=== PATIENT | female | born 1995 | race Two or more races ===

== ENCOUNTER 2017-01-16 21:32 | Emergency (ER) | payer OTHER ==
[~2017-01-16] VITALS: Ht 152.4 cm; Wt 81.6 kg
[2017-01-16 21:57] VITALS: BP 129/86
--- NOTE | 2017-01-16 22:05 | Emergency Room Report ---
History of Present Illness General Chief Complaint: Abdominal Pain Source: Patient Present Illness HPI Is a 21-year-old female with no past history. She presents acutely abdominal pain. She has mild nonspecific pain starting this afternoon. It never went away. 2 hours ago pain became severe. Localized mostly epigastric area and radiate diffusely. No nausea no vomiting. No diarrhea. Pain is 9/10. No urinary complaint. Denies any other complaint Allergies: Coded Allergies: SESAME SEED (Verified Allergy, Unknown, 01/16/17) SHRIMP (Verified Allergy, Unknown, 01/16/17) Patient History Past Medical History: none, see triage record, old chart reviewed Past Surgical History: none Pertinent Family History: none Social History: Denies: smoking Last Menstrual Period: 12/31/16 Now: No Immunizations: other Reviewed Nursing Documentation: PMH: Agreed, PSxH: Agreed Nursing Documentation-PMH Past Medical History: No Stated History Review of Systems Eye: Denies: blurred vision, eye pain ENT: Denies: ear pain, nose congestion, throat swelling Respiratory: Denies: cough, shortness of breath Cardiovascular: Denies: chest pain, palpitations Gastrointestinal: Reports: abdominal pain, Denies: diarrhea, nausea, vomiting Musculoskeletal: Denies: back pain, joint pain Skin: Denies: rash Neurological: Denies: headache, numbness Endocrine: Denies: increased thirst, increased urine Hematologic/Lymphatic: Denies: easy bruising All Other Systems: negative except mentioned in HPI Physical Exam Vital Signs Date Time Temp Pulse Resp B/P Pulse Ox O2 Delivery O2 Flow Rate FiO2 01/16/17 21:46 97.7 71 15 129/86 97 Room Air itals normal Sp02 EP Interpretation: reviewed, normal General Appearance: well appearing, no apparent distress, alert Head: normocephalic, atraumatic Eyes: bilateral eye EOMI, bilateral eye PERRL ENT: hearing grossly normal, normal pharynx Neck: full range of motion, supple, no meningismus Respiratory: chest non-tender, lungs clear, normal breath sounds Cardiovascular #1: regular rate, rhythm, no murmur Gastrointestinal: normal bowel sounds, no mass, no organomegaly, no bruit, non- distended, tenderness - diffuse Musculoskeletal: back normal, gait/station normal, normal range of motion Psychiatric: mood/affect normal Skin: warm/dry Medical Decision Making Diagnostic Impression: Primary Impression: Abdominal pain Qualified Codes: R10.13 - Epigastric pain ER Course Patient present with abdominal pain. Most likely gastritis peptic ulcer disease. No evidence of acute abdomen. CT scan otherwise unremarkable. We'll discharge home. Lab Results Impression labs with mild leukocytosis CT/MRI/US Diagnostic Results CT/MRI/US Diagnostic Results : Imaging Test Ordered: CT abdomen and pelvis Impression read by radiologist. Mild stranding near gastroduodenal region concerning for PUD or gastritis/ duodenitis. Cannot exclude pancreatitis due to nearby stranding, please correlate clinically. No free air, pseudocyst, or abscess. No SBO, diverticulitis, or appendicitis. Fatty liver. No radiopaque cholelithiasis. No hydronephrosis. Last Vital Signs Date Time Temp Pulse Resp B/P Pulse Ox O2 Delivery O2 Flow Rate FiO2 01/16/17 21:57 97.7 15 129/86 97 Room Air 01/16/17 21:46 71 Status: improved Disposition: HOME, SELF-CARE Condition: Stable Scripts Omeprazole Magnesium (PRILOSEC OTC) 20 Mg Tablet. 20 MG ORAL DAILY, #30 TAB Prov: SAM CORNEJO M.D. 01/17/17 Additional Instructions: Followup with your DrAlex in 2-3 days. Return if symptom worsen. SAM CORNEJO M.D. Jan 16, 2017 22:05
[2017-01-16] MEDS ORDERED: Morphine Sulfate 4mg/ml Inj IVP ONE (22:15)
[2017-01-16 22:27] LABS: APPEARANCE,URINE CLEAR; KETONES,URINE NEGATIVE (NEGATIVE); LEUKOCYTE ESTERASE ,URINE 3+ (NEGATIVE); NITRITE,URINE NEGATIVE (NEGATIVE); PH,URINE 6 (4.5-8.0); PROTEIN,URINE NEGATIVE (NEGATIVE); UROBILINOGEN,URINE NORMAL MG/DL (0.0-1.0)
[2017-01-16 22:34] LABS: BACTERIA,URINE FEW /HPF; BASOPHILS % (AUTO) 0.9 % (0.0-2.0); EOSINOPHILS % (AUTO) 3.7 % (0.0-3.0); LYMPHOCYTES % (AUTO) 25.7 % (20.0-45.0); MEAN CORPUSCULAR HEMOGLOBIN 29.5 PG (27.0-31.0); MEAN CORPUSCULAR VOLUME 84 FL (80-99); MONOCYTES % (AUTO) 7.8 % (1.0-10.0); PLATELET COUNT 364 K/UL (150-450); RBC,URINE 0-2 /HPF (0 - 2); RED BLOOD COUNT 5.17 M/UL (4.20-5.40); RED CELL DISTRIBUTION WIDTH 11.3 % (11.6-14.8); SQUAMOUS EPITHELIAL CELL,UR FEW /LPF (NONE/OCC); WHITE BLOOD COUNT 15.2 K/UL (4.8-10.8)
[2017-01-16 22:45] LABS: ALANINE AMINOTRANSFERASE 48 U/L (3-33); ALBUMIN/GLOBULIN RATIO 1.6 (1.0-2.7); ANION GAP 14 (5-15); ASPARTATE AMINO TRANSFERASE 27 U/L (5-40); CALCIUM 9.9 mg/dL (8.6-10.2); CARBON DIOXIDE 27 mEQ/L (20-30); CHLORIDE 100 mEQ/L (98-107); CREATININE 0.7 mg/dL (0.5-0.9); GLOMERULAR FILTRATION RATE > 60 mL/min (>60); HEMOLYSIS 2; LIPASE 31 U/L (< 60); POTASSIUM 3.9 mEQ/L (3.4-4.9); SODIUM 141 mEQ/L (135-145); TOTAL PROTEIN 7.3 g/dL (6.6-8.7)
[2017-01-16] MEDS ORDERED: Ketorolac 30mg Inj IV ONE (23:00)
[2017-01-17] MEDS ORDERED: PRILOSEC OTC20 MG ORAL (00:04)
[2017-01-17 00:11] VITALS: BP 129/86
[2017-01-17] MEDS ORDERED: Pantoprazole Inj IVP ONE (00:15)
--- NOTE | 2017-01-17 09:33 | Diagnostic Imaging Report ---
Clinical Indication: Upper abdominal pain and nausea since this morning Technique: No oral contrast utilized, per emergency room physician request IV administration nonionic contrast. Venous phase spiral acquisition obtained through the abdomen and pelvis. Multiplanar reconstructions were generated. Total dose length product mGycm. CTDIvol(s) 17 mGy. Dose reduction achieved using automated exposure control Comparison: None Findings: The appendix is normal. No evidence of diverticulosis or diverticulitis. Single focally prominent upper abdominal jejunal loop is noted, but small bowel loops overall nondilated. There is equivocal slight stranding of the fat in the region of the jaya hepatis. No free or loculated intraperitoneal air or fluid is evident. The liver is diffusely hypoattenuating, consistent with fatty change. No focal abnormality. The gallbladder, bile ducts, pancreas, spleen, adrenals are unremarkable. The kidneys demonstrate bilateral subcentimeter low-attenuation lesions which are too small to characterize. No pelvic mass or adenopathy. No retroperitoneal or mesenteric mass or adenopathy. The included lung bases demonstrate minimal posterior dependent atelectasis on the right. The bones are unremarkable. Impression: Slight fat stranding in the region of the jaya hepatis, of doubtful significance, if real could indicate very mild duodenitis or pancreatitis. Correlate with clinical findings Single focally prominent upper abdominal small bowel loop, of doubtful significance but mild enteritis changes likewise not excludable No acute abnormality otherwise Fatty liver This agrees with the preliminary interpretation provided overnight by [facility]. The CT scanner at [facility] is accredited by the [employer] and the scans are performed using protocols designed to limit radiation exposure to as low as reasonably achievable to attain images of sufficient resolution adequate for diagnostic evaluation.
== END 2017-01-17 00:21 | disposition home or self-care (01) ==
LOC: EMR 22:10
DX: R10.13 Epigastric pain (principal); Z91.013 Allergy to seafood; Z91.018 Allergy to other foods; D72.829 Elevated white blood cell count, unspecified; K76.0 Fatty (change of) liver, not elsewhere classified
CPT/HCPCS: 36415; 74177; 80053; 81003; 81025; 83690; 85025; 96374; 96375; 99284; J1885; J2270; J2405; Q9967

== ENCOUNTER 2018-03-29 20:35 | Emergency (ER) | payer OTHER ==
[~2018-03-29] VITALS: Ht 152.4 cm; Wt 81.6 kg
[~2018-03-29 20:35] MED LIST: PRILOSEC OTC20 MG ORAL
--- NOTE | 2018-03-29 20:54 | Emergency Room Report ---
History of Present Illness General Chief Complaint: Abdominal Pain Source: Patient Present Illness HPI Patient is a 22-year-old female who presented after increased abdominal bloating. Patient reports having currently been on her menses. She reports having increased abdominal cramping. She states she took an aspirin earlier in the day with out any improvement. Patient states she subsequently drank a mineral water which did not change the pain.Patient denies any fever or vomiting. The patient stated that the pain had worsened after she ate to ice creams earlier in the day. Allergies: Coded Allergies: SESAME SEED (Verified Allergy, Unknown, 03/29/18) SHRIMP (Verified Allergy, Unknown, 03/29/18) Patient History Last Menstrual Period: now Reviewed Nursing Documentation: PMH: Agreed; PSxH: Agreed Nursing Documentation-PMH Past Medical History: No History, Except For Hx Gastrointestinal Problems: Yes - stomach ulcers Review of Systems All Other Systems: negative except mentioned in HPI Physical Exam Vital Signs Date Time Temp Pulse Resp B/P (MAP) Pulse Ox O2 Delivery O2 Flow Rate FiO2 03/29/18 20:37 98.4 73 16 132/78 96 Room Air 98.4 General Appearance: well appearing, no apparent distress, obese Head: normocephalic, atraumatic ENT: hearing grossly normal, normal voice Neck: full range of motion, supple Respiratory: no respiratory distress, speaking full sentences Gastrointestinal: normal inspection, normal bowel sounds, non tender, soft Musculoskeletal: normal inspection, no calf tenderness Neurologic: normal inspection, alert, oriented x3, responsive, senior private client advisor III-XII nml as tested, normal gait Psychiatric: mood/affect normal Skin: no rash Medical Decision Making Diagnostic Impression: Primary Impression: Nonspecific abdominal pain ER Course Patient presented for abdominal pain. Differential diagnoses included ischemic bowel, appendicitis, perforated viscus, abdominal aortic aneurysm, inferior myocardial infarction, viral gastroenteritis Patient has a benign exam and does not appear to require any further imaging or laboratory testing at this time. Urine test was negative. The patient is advised to follow up with primary care doctor in 1-2 days. Patient is advised to return if any worsening condition or if any changes in status that are concerning. This report is dictated with truedash chemical etching processor software which may occasionally lead to discrepancies related to use of this software. Labs Test 03/29/18 20:51 Urine HCG, Qualitative Negative (NEGATIVE) Last Vital Signs Date Time Temp Pulse Resp B/P (MAP) Pulse Ox O2 Delivery O2 Flow Rate FiO2 03/29/18 20:37 98.4 73 16 132/78 96 Room Air 98.4 Status: improved Disposition: HOME, SELF-CARE Condition: Stable Scripts Dicyclomine Hcl* (DICYCLOMINE HCL*) 10 Mg Capsule 10 MG PO QID, #30 CAP Prov: Simon Monreal MD 03/29/18 Simon Monreal MD Mar 29, 2018 20:54
[2018-03-29 21:00] VITALS: BP 128/78
[2018-03-29] MEDS ORDERED: Dicyclomine HCl 10mg/5ml oral soln ORAL ONE (21:00)
[2018-03-29] MEDS ORDERED: DICYCLOMINE HCL10 MG PO (21:05)
[2018-03-29 21:15] VITALS: BP 128/78
== END 2018-03-29 21:18 | disposition home or self-care (01) ==
LOC: EMR 20:59
DX: R10.9 Unspecified abdominal pain (principal); Z91.013 Allergy to seafood; Z91.018 Allergy to other foods; Z87.19 Personal history of other diseases of the digestive system
CPT/HCPCS: 81025; 99283